=== PATIENT | male | born 1945 | race Caucasian/White ===

== ENCOUNTER 2018-03-02 13:33 | Inpatient (IN) | payer MEDICARE, OTHER ==
[~2018-03-02] VITALS: Ht 188 cm; Wt 99.5 kg
[2018-03-02 19:59] VITALS: BP 138/86
[2018-03-02] MEDS ORDERED: CATAPRES0.2 MG PO (20:30)
[2018-03-02] MEDS ORDERED: LOSARTAN-HCTZ1 EAC2 PO (20:31)
[2018-03-02] MEDS ORDERED: COREG25 MG PO (20:31)
[2018-03-02] MEDS ORDERED: GLIMEPIRIDE1 MG PO (20:32)
[2018-03-02 23:45] VITALS: BP 142/83
[2018-03-03] VITALS (7 sets, daily range): BP systolic 131–160; BP diastolic 47–90; Ht 188 cm; Wt 99.5 kg
[2018-03-03] MEDS ORDERED: LIPITOR20 MG PO (00:20)
[2018-03-03] MEDS ORDERED: SYNTHROID88 MCG PO (00:20)
[2018-03-03] MEDS ORDERED: ZYLOPRIM100 MG PO ×2 (00:21→00:28)
[2018-03-03] MEDS ORDERED: BAYER CHEWABLE81 MG PO (00:23)
[2018-03-03] MEDS ORDERED: NITROQUICK0.4 MG SL (00:24)
[2018-03-03] MEDS ORDERED: PROTONIX40 MG PO (00:24)
[2018-03-03] MEDS ORDERED: ZOCOR40 MG PO (00:25)
[2018-03-03] MEDS ORDERED: REGLAN10 MG PO (00:26)
[2018-03-03] MEDS ORDERED: LONITEN10 MG PO (00:27)
[2018-03-03] MEDS ORDERED: DIOVAN160 MG PO (00:28)
[2018-03-03] MEDS ORDERED: HYDROCHLOROTH12.5 M1 PO (00:32)
[2018-03-03 08:16] LABS: BASOPHILS 0.2 % (0-2); EOSINOPHILS 1.7 % (0-7); HEMATOCRIT 28.8 % (42.0-54.0); HEMOGLOBIN 9.7 g/dL (13.5-17.5); IMMATURE GRANULOCYTES 0.3 % (0-5); LYMPHOCYTES 14.8 % (15-50); MCH 31.7 pg (26.0-34.0); MCHC 33.7 g/dL (31.0-37.0); MCV 94.1 fL (80.0-100.0); MEAN PLATELET VOLUME 11.1 fL (7.4-10.4); MONOCYTES 8.3 % (2-11); NEUTROPHILS 74.7 % (40-80); PLATELET COUNT 128 10x3/uL (130-400); RBC 3.06 10x6/uL (4.20-6.10); RDW 14.9 % (11.5-14.5); WBC 6.4 10x3/uL (4.8-10.8)
[2018-03-03 08:32] LABS: ALBUMIN 2.4 g/dL (3.4-5.0); ANION GAP 15.7 mmol/L (8-16); BILIRUBIN - TOTAL 0.78 mg/dL (0.2-1.3); CALCIUM 8.2 mg/dL (8.5-10.1); CARBON DIOXIDE 18.7 mmol/L (21.0-32.0); CREATININE - SERUM 3.5 mg/dL (0.6-1.3); POTASSIUM - SERUM 4.4 mmol/L (3.5-5.1); PROTEIN - SERUM 4.9 g/dL (6.4-8.2)
[2018-03-03 14:43] LABS: % SATURATION 33 % (15-55); IRON 43 ug/dl (35-150); TOTAL IRON BIND CAPACITY 130 ug/dl (260-445); UNSAT IRON BIND CAPACITY 87 ug/dl (150-375)
[2018-03-03 15:02] LABS: CKMB 0.9 U/L (0.0-3.6); CREATINE KINASE 47 UL (21-232); MAGNESIUM - SERUM 1.9 mg/dL (1.8-2.4); T4 THYROXIN - FREE 1.02 ng/dL (0.76-1.46); THYROID STIMULATING HORMONE 3.85 uIU/mL (0.36-3.74); TROPONIN-I 0.023 ng/mL (0.000-0.060)
[2018-03-03 15:10] LABS: APPEARANCE CLEAR (CLEAR); COLOR YELLOW (YELLOW); NITRITE NEGATIVE (NEGATIVE)
[2018-03-03 15:11] LABS: AMORPHOUS SEDIMENT <1+ /lpf (NONE SEEN); BACTERIA NONE SEEN /hpf (NONE SEEN); BILIRUBIN NEGATIVE (NEGATIVE); EPITHELIAL CELLS NSEEN /hpf (0-5); GLUCOSE 250 mg/dL (NEGATIVE); KETONE NEGATIVE (NEGATIVE); PROTEIN 3+ mg/dL (NEGATIVE); RED CELLS - URINE 0-5 /hpf (0-5); UROBILINOGEN NORMAL (NORMAL); WHITE CELLS - URINE NSEEN /hpf (0-5)
[2018-03-03 17:29] LABS: PRO/CRE RATIO URINE 6.1 mg/g; PROTEIN - URINE 460.8 mg/dL (0.0-11.9)
[2018-03-03 17:34] LABS: APPEARANCE CLEAR (CLEAR); COLOR YELLOW (YELLOW); SPECIFIC GRAVITY 1.015 (1.005-1.020)
[2018-03-03 17:35] LABS: BILIRUBIN NEGATIVE (NEGATIVE); GLUCOSE 250 mg/dL (NEGATIVE); KETONE NEGATIVE (NEGATIVE); NITRITE NEGATIVE (NEGATIVE); PROTEIN 3+ mg/dL (NEGATIVE); RED CELLS - URINE OCC /hpf (0-5); UROBILINOGEN NORMAL (NORMAL); WHITE CELLS - URINE NSEEN /hpf (0-5)
[2018-03-03 18:15] LABS: ERYTHROCYTE SEDIMENTATION RATE 14 mm/hr (0-20)
[2018-03-03 19:57] LABS: CKMB 0.4 U/L (0.0-3.6); CREATINE KINASE 34 UL (21-232); TROPONIN-I 0.033 ng/mL (0.000-0.060)
[2018-03-04 01:52] LABS: CKMB 0.8 U/L (0.0-3.6); CREATINE KINASE 43 UL (21-232); TROPONIN-I 0.035 ng/mL (0.000-0.060)
[2018-03-04 03:55] VITALS: BP 145/88
[2018-03-04 05:46] LABS: BASOPHILS 0.2 % (0-2); EOSINOPHILS 3.2 % (0-7); HEMATOCRIT 26.7 % (42.0-54.0); HEMOGLOBIN 8.9 g/dL (13.5-17.5); IMMATURE GRANULOCYTES 0.4 % (0-5); LYMPHOCYTES 23.1 % (15-50); MCH 31.6 pg (26.0-34.0); MCHC 33.3 g/dL (31.0-37.0); MCV 94.7 fL (80.0-100.0); MEAN PLATELET VOLUME 11.2 fL (7.4-10.4); MONOCYTES 9.6 % (2-11); NEUTROPHILS 63.5 % (40-80); PLATELET COUNT 113 10x3/uL (130-400); RBC 2.82 10x6/uL (4.20-6.10); RDW 14.6 % (11.5-14.5); WBC 5.3 10x3/uL (4.8-10.8)
[2018-03-04 06:10] LABS: ANION GAP 16.2 mmol/L (8-16); CALCIUM 7.9 mg/dL (8.5-10.1); CARBON DIOXIDE 18.9 mmol/L (21.0-32.0); POTASSIUM - SERUM 4.1 mmol/L (3.5-5.1)
[2018-03-04 10:52] LABS: PHOSPHOROUS 4.3 mg/dL (2.5-4.9); URIC ACID 5.6 mg/dL (2.6-7.2)
[2018-03-04 11:34] VITALS: BP 133/93
[2018-03-04 19:59] VITALS: BP 131/70
[2018-03-04 23:45] VITALS: BP 136/85
[2018-03-05 03:45] VITALS: BP 149/83
[2018-03-05 05:59] LABS: BASOPHILS 0.2 % (0-2); EOSINOPHILS 3.4 % (0-7); HEMATOCRIT 25.7 % (42.0-54.0); HEMOGLOBIN 8.5 g/dL (13.5-17.5); IMMATURE GRANULOCYTES 0.5 % (0-5); LYMPHOCYTES 24.4 % (15-50); MCH 31.5 pg (26.0-34.0); MCHC 33.1 g/dL (31.0-37.0); MCV 95.2 fL (80.0-100.0); MEAN PLATELET VOLUME 10.3 fL (7.4-10.4); MONOCYTES 9.5 % (2-11); PLATELET COUNT 94 10x3/uL (130-400); RDW 14.4 % (11.5-14.5); WBC 4.4 10x3/uL (4.8-10.8)
[2018-03-05 06:23] LABS: ANION GAP 12.2 mmol/L (8-16); CALCIUM 7.7 mg/dL (8.5-10.1); CARBON DIOXIDE 21.8 mmol/L (21.0-32.0); CREATININE - SERUM 2.6 mg/dL (0.6-1.3)
[2018-03-05 07:50] LABS: PLATELET ESTIMATE DECREASED
[2018-03-05 08:41] VITALS: BP 149/87
[2018-03-05 12:16] VITALS: BP 138/83
[2018-03-05 16:31] VITALS: BP 125/84
[2018-03-05 19:00] VITALS: BP 148/76
[2018-03-06 00:23] VITALS: BP 140/73
[2018-03-06 05:03] VITALS: BP 158/85
[2018-03-06 05:08] LABS: BASOPHILS 0.4 % (0-2); EOSINOPHILS 3.5 % (0-7); HEMATOCRIT 25.3 % (42.0-54.0); HEMOGLOBIN 8.4 g/dL (13.5-17.5); IMMATURE GRANULOCYTES 0.6 % (0-5); LYMPHOCYTES 22.4 % (15-50); MCH 31.5 pg (26.0-34.0); MCHC 33.2 g/dL (31.0-37.0); MCV 94.8 fL (80.0-100.0); MEAN PLATELET VOLUME 10.4 fL (7.4-10.4); MONOCYTES 9.2 % (2-11); NEUTROPHILS 63.9 % (40-80); PLATELET COUNT 100 10x3/uL (130-400); RBC 2.67 10x6/uL (4.20-6.10); RDW 14.7 % (11.5-14.5); WBC 4.9 10x3/uL (4.8-10.8)
[2018-03-06 05:40] LABS: ANION GAP 16.1 mmol/L (8-16); CALCIUM 7.7 mg/dL (8.5-10.1); CARBON DIOXIDE 19.8 mmol/L (21.0-32.0); CREATININE - SERUM 2.5 mg/dL (0.6-1.3); POTASSIUM - SERUM 3.9 mmol/L (3.5-5.1)
[2018-03-06 06:08] LABS: FOLATE (FOLIC ACID) - SERUM 12.3 ng/mL (>3.0)
[2018-03-06 08:35] VITALS: BP 155/95
[2018-03-06 13:20] VITALS: BP 140/88
[2018-03-06 19:45] VITALS: BP 157/87
[2018-03-06 23:30] VITALS: BP 158/99
[2018-03-07 04:05] VITALS: BP 155/96
[2018-03-07 06:46] LABS: BASOPHILS 0.4 % (0-2); EOSINOPHILS 4.3 % (0-7); HEMATOCRIT 27.4 % (42.0-54.0); HEMOGLOBIN 8.9 g/dL (13.5-17.5); IMMATURE GRANULOCYTES 0.7 % (0-5); LYMPHOCYTES 22.8 % (15-50); MCH 31.4 pg (26.0-34.0); MCHC 32.5 g/dL (31.0-37.0); MEAN PLATELET VOLUME 11.3 fL (7.4-10.4); MONOCYTES 9.4 % (2-11); NEUTROPHILS 62.4 % (40-80); RBC 2.83 10x6/uL (4.20-6.10); RDW 14.7 % (11.5-14.5); WBC 5.6 10x3/uL (4.8-10.8)
[2018-03-07 06:48] LABS: MCV 96.8 fL (80.0-100.0); PLATELET COUNT 129 10x3/uL (130-400)
[2018-03-07 07:43] LABS: ANION GAP 14.3 mmol/L (8-16); CALCIUM 8.3 mg/dL (8.5-10.1); CARBON DIOXIDE 21.8 mmol/L (21.0-32.0); CREATININE - SERUM 2.3 mg/dL (0.6-1.3); POTASSIUM - SERUM 4.1 mmol/L (3.5-5.1)
[2018-03-07 09:51] VITALS: BP 154/34
[2018-03-07 11:16] VITALS: BP 82/40
--- NOTE | 2018-03-07 11:30 | MORECARE ---
CASE MANAGEMENT DISCHARGE SUMMARY PATIENT: VERONICA SOTELO UNIT: [id number] ADM DATE: 03/02/18 AGE: 73 : 46 SEX: M ROOM/BED: D.2101 AUTHOR: ELKIN REBOLLEDO PHYSICIAN: REFERRING PHYSICIAN: AMANDA BUCHANAN MD DATE OF SERVICE: 03/07/18 Discharge Plan Patient Name: VERONICA SOTELO Facility: [facility]:[place] : 1945 Planned Disposition: Inpatient Rehab Anticipated Discharge Date: 03/08/18 Discharge Date: Expected LOS: 6 Initial Reviewer: [email or web address] Initial Review Date: 03/07/2018 Generated: 03/07/18 12:29 pm External Providers External Provider: OTHER-OTHER Next Contact Date: 03/07/2018 Service Request Date: Service Type: Resolution: Reviewer: Comments: Patient Name: VERONICA SOTELO Page 75966 at 1130 All edits/amendments must be made on the electronic document DICTATION DATE: 03/07/18 1129 RN TRANSFER: VICKIE 03/07/18 1129 RPT#: [id number] MS DATE: STATUS: ADM IN [facility] [address] [place] [address] END OF REPORT
--- NOTE | 2018-03-07 12:00 | MORECARE ---
CASE MANAGEMENT DISCHARGE SUMMARY PATIENT: VERONICA SOTELO UNIT: [id number] ADM DATE: 03/02/18 AGE: 73 : 46 SEX: M ROOM/BED: D.2101 AUTHOR: ELKIN REBOLLEDO PHYSICIAN: REFERRING PHYSICIAN: AMANDA BUCHANAN MD DATE OF SERVICE: 03/07/18 Discharge Plan Patient Name: VERONICA SOTELO Facility: [facility]:[place] : 1945 Planned Disposition: Inpatient Rehab Anticipated Discharge Date: 03/08/18 Discharge Date: Expected LOS: 6 Initial Reviewer: [email or web address] Initial Review Date: 03/07/2018 Generated: 03/07/18 1:00 pm Last DP export: 03/07/18 10:29 Patient Name: VERONICA SOTELO Page 32801 at 1200 All edits/amendments must be made on the electronic document DICTATION DATE: 03/07/18 1159 ENGINEERING ASSOCIATE: VICKIE 03/07/18 1159 RPT#: [id number] DC DATE: STATUS: ADM IN [facility] [address] [place] [address] END OF REPORT
--- NOTE | 2018-03-07 12:19 | MORECARE ---
CASE MANAGEMENT DISCHARGE SUMMARY PATIENT: VERONICA SOTELO UNIT: [id number] ADM DATE: 03/02/18 AGE: 73 : 46 SEX: M ROOM/BED: D.2101 AUTHOR: ELKIN REBOLLEDO PHYSICIAN: REFERRING PHYSICIAN: AMANDA BUCHANAN MD DATE OF SERVICE: 03/07/18 Discharge Plan Patient Name: VERONICA SOTELO Facility: [facility]:[place] : 1945 Planned Disposition: Inpatient Rehab Anticipated Discharge Date: 03/08/18 Discharge Date: Expected LOS: 6 Initial Reviewer: [email or web address] Initial Review Date: 03/07/2018 Generated: 03/07/18 1:19 pm DCPIA - Discharge Planning Initial Assessment Updated by [email or web address]: Masoud Hernandez on 03/07/18 12:17 pm * Is the patient Alert and Oriented? Yes * How many steps to enter\exit or inside your home? NONE * PCP DR. YORDAN VICENTE * Pharmacy [facility] IN [place] * Preadmission Environment Home with Family * ADLs Independent * Equipment Cane * Other Equipment NO MEDICAL EQUIPMENT PROVIDER PREFERENCE * List name and contact numbers for known caregivers / representatives who currently or will assist patient after discharge: SEB SOTELO, SPOUSE, * Verbal permission to speak to the caregivers and representatives has been obtained from the patient. Yes * Community resources currently utilized None * Please name any agencies selected above. NONE * Additional services required to return to the preadmission environment? Yes * Can the patient safely return to the preadmission environment? Yes * Has this patient been hospitalized within the prior 30 days at any hospital? No Coverage Notice Reviewer: [id number] - Masoud Hernandez Notice Issued Date-Time: 03/07/2018 11:10 Notice Type: IM Discharge Notice Notice Delivered To: Patient Relationship to Patient: Director Hris Name: Delivery Method: HAND - Hand Delivered Cary Days: Prior Verbal Notification: Recipient Understood Notice: Yes Recipient Signature: Yes Med Rec Note Co-signed by Attending: Coverage Notice Comment: Last DP export: 03/07/18 11:00 Patient Name: VERONICA SOTELO Page 32733 at 1219 All edits/amendments must be made on the electronic document DICTATION DATE: 03/07/181218 COMMUNITY RELATIONS SPECIALIST: VICKIE 03/07/181218 RPT#: [id number] ID DATE: STATUS: ADM IN [facility] [address] [place] [address] END OF REPORT
--- NOTE | 2018-03-07 12:26 | MORECARE ---
CASE MANAGEMENT DISCHARGE SUMMARY PATIENT: VERONICA SOTELO UNIT: [id number] ADM DATE: 03/02/18 AGE: 73 : 46 SEX: M ROOM/BED: D.2101 AUTHOR: ELKIN REBOLLEDO PHYSICIAN: REFERRING PHYSICIAN: AMANDA BUCHANAN MD DATE OF SERVICE: 03/07/18 Discharge Plan Patient Name: VERONICA SOTELO Facility: [facility]:[place] : 1945 Planned Disposition: Inpatient Rehab Anticipated Discharge Date: 03/08/18 Discharge Date: Expected LOS: 6 Initial Reviewer: [id number] Initial Review Date: 03/07/2018 Generated: 03/07/18 1:25 pm Comments DCP- Discharge Planning Updated by [id number]: Masoud Hernandez on 03/07/18 11:[address] Patient Name: VERONICA SOTELO Admission Status: Elective Accout number: [id number] Admission Date: 03-02-2018 : 1945 Admission Diagnosis: Attending: AMANDA BUCHANAN Current LOS: 5 Anticipated DC Date: 03-08-2018 Planned Disposition: Inpatient Rehab Primary Insurance: MEDICARE A & B PLANNED EXTERNAL PROVIDER: [facility] Discharge Planning Comments: CM RECEIVED MESSAGE FROM PT'S SPOUSE, SEB, TO CALL WITH [facility] AND SPOUSE WANTS PT PLACED THERE FOR REHAB. CM MET WITH PT IN ROOM TO DISCUSS DISCHARGE PLANNING AND NEEDS. PT REPORTS LIVING AT HOME INDEPENDENTLY WITH SPOUSE. PT HAS INTERIOR STAIRS IN HIS HOME THAT HE NEVER USES. PT HAS CANE WITH NO MEDICAL EQUIPMENT PROVIDER PREFERENCE. PT HAS NO OUTSIDE SERVICES ASSISTING IN THE HOME. CM DISCUSSED AVAILABILITY OF HOME HEALTH, REHAB SERVICES AND MEDICAL EQUIPMENT. PT HAS DISCUSSED REHAB WITH HIS AND AGREES FOR REHAB AT [facility]. PT REPORTS HIS FAMILY WILL PICK HIM UP FOR DISCHARGE HOME. IMPORTANT MESSAGE FROM MEDICARE PROVIDED AND EXPLAINED. CM CALLED OF [facility], , WHO HAS SPOKEN TO PT'S SPOUSE REGARDING REHAB EVALUATION AND IS EXPECTING THE REFERRAL. CM FAXED REFERRAL TO [facility] AT [phone]. WAITING COMPLETION AND DOCUMENATION OF OCCUPATIONAL THERAPY EVALUATION AND WILL FAX TO [facility] TO COMPLETE REFERRAL FOR ADMISSION REVIEW. Coil Finisher: Masoud Hernandez DCPIA - Discharge Planning Initial Assessment Updated by [id number]: Masoud Hernandez on 03/07/18 12:17 pm * Is the patient Alert and Oriented? Yes * How many steps to enter\exit or inside your home? NONE * PCP DR. YORDAN VICENTE * Pharmacy [facility] IN [place] * Preadmission Environment Home with Family * ADLs Independent * Equipment Cane * Other Equipment NO MEDICAL EQUIPMENT PROVIDER PREFERENCE * List name and contact numbers for known caregivers / representatives who currently or will assist patient after discharge: SEB SOTELO, SPOUSE, * Verbal permission to speak to the caregivers and representatives has been obtained from the patient. Yes * Community resources currently utilized None * Please name any agencies selected above. NONE * Additional services required to return to the preadmission environment? Yes * Can the patient safely return to the preadmission environment? Yes * Has this patient been hospitalized within the prior 30 days at any hospital? No Coverage Notice Reviewer: [id number] - Masoud Hernandez Notice Issued Date-Time: 03/07/2018 11:10 Notice Type: IM Discharge Notice Notice Delivered To: Patient Relationship to Patient: Payroll Tax Specialist Name: Delivery Method: HAND - Hand Delivered Cary Days: Prior Verbal Notification: Recipient Understood Notice: Yes Recipient Signature: Yes Med Rec Note Co-signed by Attending: Coverage Notice Comment: Last DP export: 03/07/18 11:19 Patient Name: VERONICA SOTELO Page 93751 at 1226 All edits/amendments must be made on the electronic document DICTATION DATE: 03/07/18 1225 NATIONAL INVESTIGATIVE PRODUCER: VICKIE 03/07/18 1225 RPT#: [id number] DC DATE: STATUS: ADM IN [facility] [address] [place] [address] END OF REPORT
[2018-03-07 14:12] VITALS: BP 104/52
--- NOTE | 2018-03-07 18:19 | MORECARE ---
CASE MANAGEMENT DISCHARGE SUMMARY PATIENT: VERONICA SOTELO UNIT: [id number] ADM DATE: 03/02/18 AGE: 73 : 46 SEX: M ROOM/BED: D.2101 AUTHOR: AMAURYDOC PHYSICIAN: REFERRING PHYSICIAN: AMANDA BUCHANAN MD DATE OF SERVICE: 03/07/18 Discharge Plan Patient Name: VERONICA SOTELO Facility: [facility]:[place] : 1945 Planned Disposition: Inpatient Rehab Anticipated Discharge Date: 03/08/18 Discharge Date: Expected LOS: 6 Initial Reviewer: [id number] Initial Review Date: 03/07/2018 Generated: 03/07/18 7:19 pm Comments DCP- Discharge Planning Updated by [email or web address]: Masoud Hernandez on 03/07/18 5:[address] Patient Name: VERONICA SOTELO Admission Status: Elective Accout number: [id number] Admission Date: 03-02-2018 : 1945 Admission Diagnosis: Attending: AMANDA BUCHANAN Current LOS: 5 Anticipated DC Date: 03-08-2018 Planned Disposition: Inpatient Rehab Primary Insurance: MEDICARE A & B PLANNED EXTERNAL PROVIDER: [facility] Discharge Planning Comments: CM RECEIVED MESSAGE FROM PT'S SPOUSE, SEB, TO CALL WITH [facility] AND SPOUSE WANTS PT PLACED THERE FOR REHAB. CM MET WITH PT IN ROOM TO DISCUSS DISCHARGE PLANNING AND NEEDS. PT REPORTS LIVING AT HOME INDEPENDENTLY WITH SPOUSE. PT HAS INTERIOR STAIRS IN HIS HOME THAT HE NEVER USES. PT HAS CANE WITH NO MEDICAL EQUIPMENT PROVIDER PREFERENCE. PT HAS NO OUTSIDE SERVICES ASSISTING IN THE HOME. CM DISCUSSED AVAILABILITY OF HOME HEALTH, REHAB SERVICES AND MEDICAL EQUIPMENT. PT HAS DISCUSSED REHAB WITH HIS AND AGREES FOR REHAB AT [facility]. PT REPORTS HIS FAMILY WILL PICK HIM UP FOR DISCHARGE HOME. IMPORTANT MESSAGE FROM MEDICARE PROVIDED AND EXPLAINED. CM CALLED OF [facility], , WHO HAS SPOKEN TO PT'S SPOUSE REGARDING REHAB EVALUATION AND IS EXPECTING THE REFERRAL. CM FAXED REFERRAL TO [facility] AT [phone]. CM WAITING COMPLETION AND DOCUMENATION OF OCCUPATIONAL THERAPY EVALUATION AND WILL FAX TO [facility] TO COMPLETE REFERRAL FOR ADMISSION REVIEW. Social Professionals: Masoud Hernandez Appended by Masoud Hernandez on 03/07/2018 18:17 DISPENSING OPTICIAN APPRENTICE: CM FAXED COMPLETED OCCUPATIONAL THERAPY EVALUATION TO [facility] AT [phone] TO COMPLETE REFERRAL FOR ADMISSION REVIEW. CM WAITING ADMISSION DETERMINATION FROM [facility]. Social Professionals: Masoud Hernandez DCPIA - Discharge Planning Initial Assessment Updated by [id number]: Masoud Hernandez on 03/07/18 12:17 pm * Is the patient Alert and Oriented? Yes * How many steps to enter\exit or inside your home? NONE * PCP DR. YORDAN VICENTE * Pharmacy [facility] IN [place] * Preadmission Environment Home with Family * ADLs Independent * Equipment Cane * Other Equipment NO MEDICAL EQUIPMENT PROVIDER PREFERENCE * List name and contact numbers for known caregivers / representatives who currently or will assist patient after discharge: SEB SOTELO, SPOUSE, * Verbal permission to speak to the caregivers and representatives has been obtained from the patient. Yes * Community resources currently utilized None * Please name any agencies selected above. NONE * Additional services required to return to the preadmission environment? Yes * Can the patient safely return to the preadmission environment? Yes * Has this patient been hospitalized within the prior 30 days at any hospital? No Coverage Notice Reviewer: [id number] - Masoud Hernandez Notice Issued Date-Time: 03/07/2018 11:10 Notice Type: IM Discharge Notice Notice Delivered To: Patient Relationship to Patient: Detention Sergeant Name: Delivery Method: HAND - Hand Delivered Cary Days: Prior Verbal Notification: Recipient Understood Notice: Yes Recipient Signature: Yes Med Rec Note Co-signed by Attending: Coverage Notice Comment: Last DP export: 03/07/18 11:25 Patient Name: VERONICA SOTELO Page 06495 at 6574 All edits/amendments must be made on the electronic document DICTATION DATE: 03/07/181818 NIGHT NURSE: VICKIE 03/07/181818 RPT#: [id number] DC DATE: STATUS: ADM IN [facility] [address] [place] [address] END OF REPORT
[2018-03-07 19:00] VITALS: BP 155/91
[2018-03-08 00:44] VITALS: BP 153/98
[2018-03-08 04:34] VITALS: BP 158/84
[2018-03-08 05:29] LABS: BASOPHILS 0.5 % (0-2); EOSINOPHILS 3.6 % (0-7); HEMATOCRIT 24.5 % (42.0-54.0); IMMATURE GRANULOCYTES 0.9 % (0-5); LYMPHOCYTES 24.1 % (15-50); MCH 31.5 pg (26.0-34.0); MCHC 32.7 g/dL (31.0-37.0); MCV 96.5 fL (80.0-100.0); MEAN PLATELET VOLUME 11.8 fL (7.4-10.4); MONOCYTES 9.1 % (2-11); NEUTROPHILS 61.8 % (40-80); PLATELET COUNT 111 10x3/uL (130-400); RBC 2.54 10x6/uL (4.20-6.10); RDW 14.8 % (11.5-14.5); WBC 4.4 10x3/uL (4.8-10.8)
[2018-03-08 05:46] LABS: ANION GAP 12.4 mmol/L (8-16); CALCIUM 7.7 mg/dL (8.5-10.1); CARBON DIOXIDE 22.4 mmol/L (21.0-32.0); CREATININE - SERUM 2.3 mg/dL (0.6-1.3); POTASSIUM - SERUM 3.8 mmol/L (3.5-5.1)
[2018-03-08 08:48] VITALS: BP 149/85
[2018-03-08 12:00] VITALS: BP 137/87
--- NOTE | 2018-03-08 13:10 | MORECARE ---
CASE MANAGEMENT DISCHARGE SUMMARY PATIENT: VERONICA SOTELO UNIT: [id number] ADM DATE: 03/02/18 AGE: 73 : 46 SEX: M ROOM/BED: D.2101 AUTHOR: ELKIN REBOLLEDO PHYSICIAN: REFERRING PHYSICIAN: AMANDA BUCHANAN MD DATE OF SERVICE: 03/08/18 Discharge Plan Patient Name: VERONICA SOTELO Facility: [facility]:[place] : 1945 Planned Disposition: Inpatient Rehab Anticipated Discharge Date: 03/08/18 Discharge Date: Expected LOS: 6 Initial Reviewer: [id number] Initial Review Date: 03/07/2018 Generated: 03/08/18 2:09 pm Comments DCP- Discharge Planning Updated by [email or web address]: Masoud Hernandez on 03/08/18 12:[address] Patient Name: VERONICA SOTELO Encounter No: [id number] : 1945 Primary Insurance: MEDICARE A & B Anticipated DC Date: 03-08-2018 Planned Disposition: Inpatient Rehab External Planned Provider: [facility] Discharge Planning Comments: CM RECEIVED CALL FROM OF [facility], , WHO HAS RECEIVED AND REVIEWED REFERRAL, SHE WILL VISIT WITH PT TODAY AT HOSPITAL TO ASSESS FOR REHAB PLACEMENT. REPORTS THAT SHE EXPECTS TO ACCEPT FOR INPATIENT REHAB.. CM WAITING ADMISSION DETERMINATION FROM [facility]. Bottle Hop: Masoud Hernandez DCP- Discharge Planning Updated by [id number]: Masoud Hernandez on 03/07/18 5:[address] Patient Name: VERONICA SOTELO Admission Status: Elective Accout number: [id number] Admission Date: 03-02-2018 : 1945 Admission Diagnosis: Attending: AMANDA BUCHANAN Current LOS: 5 Anticipated DC Date: 03-08-2018 Planned Disposition: Inpatient Rehab Primary Insurance: MEDICARE A & B PLANNED EXTERNAL PROVIDER: [facility] Discharge Planning Comments: CM RECEIVED MESSAGE FROM PT'S SPOUSE, SEB, TO CALL WITH [facility] AND SPOUSE WANTS PT PLACED THERE FOR REHAB. CM MET WITH PT IN ROOM TO DISCUSS DISCHARGE PLANNING AND NEEDS. PT REPORTS LIVING AT HOME INDEPENDENTLY WITH SPOUSE. PT HAS INTERIOR STAIRS IN HIS HOME THAT HE NEVER USES. PT HAS CANE WITH NO MEDICAL EQUIPMENT PROVIDER PREFERENCE. PT HAS NO OUTSIDE SERVICES ASSISTING IN THE HOME. CM DISCUSSED AVAILABILITY OF HOME HEALTH, REHAB SERVICES AND MEDICAL EQUIPMENT. PT HAS DISCUSSED REHAB WITH HIS AND AGREES FOR REHAB AT [facility]. PT REPORTS HIS FAMILY WILL PICK HIM UP FOR DISCHARGE HOME. IMPORTANT MESSAGE FROM MEDICARE PROVIDED AND EXPLAINED. CM CALLED MJ OF [facility], , WHO HAS SPOKEN TO PT'S SPOUSE REGARDING REHAB EVALUATION AND IS EXPECTING THE REFERRAL. CM FAXED REFERRAL TO [facility] AT [phone]. CM WAITING COMPLETION AND DOCUMENATION OF OCCUPATIONAL THERAPY EVALUATION AND WILL FAX TO [facility] TO COMPLETE REFERRAL FOR ADMISSION REVIEW. Bottle Hop: Masoud Hernandez Appended by Masoud Hernandez on 03/07/2018 18:17 TABLE ASSEMBLER: CM FAXED COMPLETED OCCUPATIONAL THERAPY EVALUATION TO [facility] AT [phone] TO COMPLETE REFERRAL FOR ADMISSION REVIEW. CM WAITING ADMISSION DETERMINATION FROM [facility]. Bottle Hop: Masoud Hernandez DCPIA - Discharge Planning Initial Assessment Updated by [id number]: Masoud Hernandez on 03/07/18 12:17 pm * Is the patient Alert and Oriented? Yes * How many steps to enter\exit or inside your home? NONE * PCP DR. YORDAN VICENTE * [facility] [place] * Preadmission Environment Home with Family * ADLs Independent * Equipment Cane * Other Equipment NO MEDICAL EQUIPMENT PROVIDER PREFERENCE * List name and contact numbers for known caregivers / representatives who currently or will assist patient after discharge: SEB SOTELO, SPOUSE, * Verbal permission to speak to the caregivers and representatives has been obtained from the patient. Yes * Community resources currently utilized None * Please name any agencies selected above. NONE * Additional services required to return to the preadmission environment? Yes * Can the patient safely return to the preadmission environment? Yes * Has this patient been hospitalized within the prior 30 days at any hospital? No Coverage Notice Reviewer: [id number] - Masoud Hernandez Notice Issued Date-Time: 03/07/2018 11:10 Notice Type: IM Discharge Notice Notice Delivered To: Patient Relationship to Patient: Band Aid Machine Operator Name: Delivery Method: HAND - Hand Delivered Cary Days: Prior Verbal Notification: Recipient Understood Notice: Yes Recipient Signature: Yes Med Rec Note Co-signed by Attending: Coverage Notice Comment: Last DP export: 03/07/18 5:19 Patient Name: VERONICA SOTELO Page 82960 at 1310 All edits/amendments must be made on the electronic document DICTATION DATE: 03/08/18 1309 LOAN AND CREDIT MANAGER: VICKIE 03/08/18 1309 RPT#: [id number] DC DATE: STATUS: [facility]M [facility] [address] [place] [address] END OF REPORT
[2018-03-08 13:12] LABS: UPE RAND - ALBUMIN 73.8 % (()); UPE RAND - ALPHA 1 GLOBULIN 1.6 % (()); UPE RAND - ALPHA 2 GLOBULIN 8.5 % (()); UPE RAND - BETA GLOBULIN 9.2 % (()); UPE RAND - GAMMA GLOBULIN 6.8 % (())
[2018-03-08 13:12] LABS: SPE - A/G RATIO 1.4 (0.7-1.7); SPE - ALBUMIN 2.6 g/dL (2.9-4.4); SPE - ALPHA-1 GLOBULIN 0.3 g/dL (0.0-0.4); SPE - ALPHA-2 GLOBULIN 0.6 g/dL (0.4-1.0); SPE - BETA GLOBULIN 0.6 g/dL (0.7-1.3); SPE - GAMMA GLOBULIN 0.4 g/dL (0.4-1.8); SPE - M-SPIKE Not Observed g/dL (Not Observed); SPE - TOTAL PROTEIN 4.5 g/dL (6.0-8.5)
--- NOTE | 2018-03-08 14:57 | EC ---
PATIENT:VERONICA SOTELO DATE OF SERVICE: 03/02/18 SEX: M MEDICAL RECORD: [id number] DATE OF : [birth year] LOCATION:D.M2 D.210 AGE OF PATIENT: 73 ADMISSION DATE: 03/02/18 REFERRING PHYSICIAN: INTERPRETING PHYSICIAN: VANESSA MIJARES MD ECHOCARDIOGRAM REPORT ECHO CHARGES 4 ECHO COMPLETE Date: 03/03/18 CLINICAL DIAGNOSIS: CHF ECHOCARDIOGRAPHIC MEASUREMENTS (adult normal given) AC root (d.<3.7cm) 4.6 cm LV Septum d (<1.2 cm> 1.6 cm Valve Excursion 2.3 cm LV Septum (systole) 2.4 cm Left Atria (s.<4.0cm> 5.4 cm LVPW d(<1.2cm) 1.7 cm RV (d.<2.3cm) 2.6 cm LVPW (sytole) 2.2 cm LV diastole(<5.6CM) 6.9 cm MV E-F(>70mm/sec) cm LV systole 4.9 cm LVOT Diameter 2.4 cm MV exc.(>10mm) cm Est.ejection fraction (50-75%) % DOPPLER: LVIT cm/sec A cm/sec E 133 cm/sec LA cm/sec RVSP 43.0 mmHg LVOT 73.0 cm/sec AOP1/2T m/s Asc. Ao 142 cm/sec RVOT 78.0 cm/sec RA cm/sec PA 122 cm/sec AV Gradient Peak 8.1 mmHg AV Mean 4.4 mmHg AV Area 2.1 cm MV Gradient Peak 8.5 mmHg MV Mean 3.2 mmHg MV Area cm COMMENTS: Director Trade: Lorenzo CARPIOOE Peoplesoft: 1 Dr. Mijares TAPE# PACS Pericardial Effusion N DATE OF SERVICE: 03/03/2018 PROCEDURE: Echocardiogram. FINDINGS: 1. Left ventricular chamber size is mildly dilated. Left ventricular systolic function is significantly reduced, overall ejection fraction 30%. 2. Left atrium is enlarged at 5.4 cm. Right atrium and right ventricle chamber sizes are as well dilated. 3. Valvular structures have normal structure and motion. ECHOCARDIOGRAM REPORT [id number] VERONICA SOTELO 4. Doppler interrogation reveals mild aortic insufficiency, mild mitral regurgitation, mild tricuspid regurgitation, no other valvular insufficiency or stenosis. Pulmonary systolic pressure is estimated 43 mmHg. 5. No evidence of pericardial effusion or left ventricular thrombus. TRANSINT:[id number] Voice Confirmation ID: [id number] DOCUMENT ID: [id number] VANESSA MIJARES MD at 1457 CC: [id number] DICTATION DATE: 03/04/18 0903 CUSTOMER ACCOUNT MANAGER: 03/04/18 1019 ADM IN [place] [id number] [place] [id number]
--- NOTE | 2018-03-08 14:57 | CN ---
PATIENT NAME:VERONICA SOTELO MEDICAL RECORD: [id number] : [birth year] LOCATION:[facility] D.2101 ADMIT DATE: 03/02/18 ACCOUNT: [id number] CONSULTING PHYSICIAN: VANESSA URIAS MD REFERRING PHYSICIAN: AMANDA BUCHANAN MD DATE OF CONSULTATION: 03/04/2018 CARDIOLOGY CONSULT DIAGNOSES: 1. Congestive heart failure with chronic systolic dysfunction. 2. Cardiomyopathy. 3. Coronary disease. 4. Previous coronary bypass graft surgery. 5. Atrial fibrillation. 6. Hypertension. 7. Diabetes. 8. Renal insufficiency. 9. Anemia. 10. Status post ICD. 11. History of GI bleed. HISTORY: This is a gentleman who is followed by Dr. Cadet at [facility] in [place]. He has a known cardiomyopathy; known atrial fibrillation, not anticoagulated secondary to GI bleed; and known coronary artery disease, who presents with blood sugar problems and found to have creatinine in the 3 range. Echocardiogram reveals dilated cardiomyopathy with ejection fraction in the 30% range; however, minimal heart failure symptomatology. He was in atrial fibrillation initially with rapid ventricular response, placed on a Cardizem drip. He is on Coreg 50 mg b.i.d. Still on the Cardizem drip with heart rates in the 90s and systolic blood pressure in the 150s. PHYSICAL EXAMINATION: GENERAL APPEARANCE: Well-nourished, well-developed, appears stated age. Level of distress, comfortable. PSYCHIATRIC: Mental status, alert, normal affect. Orientation, oriented to time, place and person. EYES: Lids and conjunctiva, noninjected. No discharge, no pallor. ENT: Lips, teeth, gums, normal dentition. Oropharynx, no cyanosis, no pallor. NECK: Carotid arteries, bilateral normal upstroke, no bruits, no thrills. JUGULAR VEINS: No jugular venous pressure or distention. CERVICAL LYMPH NODES: Nontender, nonenlarged. THYROID: Not enlarged. Nontender. No nodules. LUNGS: Respiratory effort, unlabored. CHEST: Normal curvature. No thoracic deformity. No chest wall tenderness. Percussion, resonant. Auscultation, clear. No wheezes, no rales, no rhonchi. CARDIOVASCULAR: Precordial exam, nondisplaced. No heaves or pericardial thrills. Rate and rhythm, regular. Heart sounds, normal S1, normal S2. No S3, no gallop, no rub. Systolic murmur, not heard. Diastolic murmur, not heard. EXTREMITIES: No cyanosis, no edema. Peripheral pulses, full and equal in all extremities, except as noted. No bruits appreciated. ABDOMEN: Soft, nondistended. Normal aorta. No bruit. Nontender. No masses. Liver, nontender, no hepatomegaly. Spleen, nontender, no splenomegaly. MUSCULOSKELETAL: No joint tenderness. No joint swelling. No erythema. NEUROLOGICAL: Normal gait, normal strength, normal tone. CONSULT REPORT [id number] VERONICA SOTELO SKIN: Warm and dry. OVERALL IMPRESSION: Cardiomyopathy, relatively stable; atrial fibrillation. We will discontinue the Cardizem drip and place him on p.o. Cardizem at 180 daily. Ejection fraction appears to be stable from the history of chronic systolic dysfunction at 30%. He has no signs or symptoms of ischemic heart disease, but cardiac catheterization is not an option due to his creatinine. At this time, the only change in his medication would be the p.o. diltiazem. No other cardiac workup or treatment is necessary at this time. TRANSINT:[id number] Voice Confirmation ID: [id number] DOCUMENT ID: [id number] VANESSA URIAS MD at 1457 CC: [id number] DICTATION DATE: 03/04/18 1055 ANIMAL CARE SPECIALIST: 03/04/18 1431 ADM IN [place] [id number] [place] [address]
[2018-03-08 18:45] VITALS: BP 150/50
[2018-03-09] VITALS: BP 163/90
[2018-03-09 04:00] VITALS: BP 184/98
[2018-03-09 04:49] LABS: ANION GAP 15.9 mmol/L (8-16); CARBON DIOXIDE 19.9 mmol/L (21.0-32.0); POTASSIUM - SERUM 3.8 mmol/L (3.5-5.1)
[2018-03-09 08:07] LABS: HEMATOCRIT 28.6 % (42.0-54.0); HEMOGLOBIN 9.3 g/dL (13.5-17.5); MCH 31.7 pg (26.0-34.0); MCHC 32.5 g/dL (31.0-37.0); MCV 97.6 fL (80.0-100.0); MEAN PLATELET VOLUME 11.7 fL (7.4-10.4); PLATELET COUNT 131 10x3/uL (130-400); RBC 2.93 10x6/uL (4.20-6.10); RDW 15.2 % (11.5-14.5)
[2018-03-09 08:12] LABS: WBC 6.5 10x3/uL (4.8-10.8)
[2018-03-09 09:07] LABS: EOSINOPHILS 2 % (0-7); LYMPHOCYTES 23 % (15-50); MONOCYTES 10 % (2-11); NEUTROPHILS 63 % (40-80); PLATELET ESTIMATE NORMAL
--- NOTE | 2018-03-09 09:23 | MORECARE ---
CASE MANAGEMENT DISCHARGE SUMMARY PATIENT: VERONICA SOTELO UNIT: [id number] ADM DATE: 03/02/18 AGE: 73 : 46 SEX: M ROOM/BED: D.2101 AUTHOR: AMAURYDOC PHYSICIAN: REFERRING PHYSICIAN: AMANDA BUCHANAN MD DATE OF SERVICE: 03/09/18 Discharge Plan Patient Name: VERONICA SOTELO Facility: [facility]:[place] : 1945 Planned Disposition: Inpatient Rehab Anticipated Discharge Date: 03/08/18 Discharge Date: Expected LOS: 6 Initial Reviewer: [id number] Initial Review Date: 03/07/2018 Generated: 03/09/18 10:23 am Comments DCP- Discharge Planning Updated by [email or web address]: Masoud Hernandez on 03/09/18 8:[address] Patient Name: VERONICA SOTELO Encounter No: [id number] : 1945 Primary Insurance: MEDICARE A & B Anticipated DC Date: 03-08-2018 Planned Disposition: Inpatient Rehab External Planned Provider: [facility] [facility] DCP follow-up note: [facility] Discharge Planning Comments: CM RECEIVED CALL FROM PT'S SPOUSE, SEB, , WHO REPORTS SPEAKING TO WITH REHAB AND THEY ARE GOING TO ACCEPT PT TODAY. REHAB WILL NOT PROVIDE TRANSPORTATION AND SPOUSE ASKED FOR AMBULANCE TRANSPORT. CM EXPLAINED THAT PT WILL NOT QUALIFY FOR MEDICARE TO PAY FOR AMBUANCE DUE TO ABILITY TO TRANSFER, SIT SAFELY AND WALK WITH ASSISTANCE AND DEVICE. PT HAS NOT SPECIAL NEEDS THAT REQUIRE AMBULANCE TRANSPORT. CM EXPLAINED THAT DAN SCHWARTZ WOULD BE VERY HIGH, SHE DOES NOT WANT TO PAY FOR AMBULANCE AND SHE WILL ARRANGE FAMILY TO MEAT GRADING MACHINE OPERATOR PT TODAY TO TRANSPORT TO REHAB AT [facility] [facility]. SAIRA CALLED AND DISCUSSED WITH KUN SHELDON WHO INFORMED CM THAT PLAN FOR DISCHARGE TODAY TO REHAB. CM CALLED SEB SOTELO BACK AND CONFIRMED PLANNED DISCHARGE FOR TODAY TO REHAB. SAIRA CALLED AND LEFT MESSAGE FOR OF [facility], , CM FAXED UPDATE TO [facility] AT [phone]. CM WAITING ADMISSION DETERMINATION FROM [facility]. FAMILY ON THE WAY FROM [facility] TO PROVIDE TRANSPORT TO REHAB TODAY AT DISCHARGE. Service Transformer Repair Supervisor: Masoud Hernandez DCP- Discharge Planning Updated by [id number]: Masoud Hernandez on 03/08/18 12:[address] Patient Name: VERONICA SOTELO Encounter No: [id number] : 1945 Primary Insurance: MEDICARE A & B Anticipated DC Date: 03-08-2018 Planned Disposition: Inpatient Rehab External Planned Provider: [facility] Discharge Planning Comments: CM RECEIVED CALL FROM OF [facility], , WHO HAS RECEIVED AND REVIEWED REFERRAL, SHE WILL VISIT WITH PT TODAY AT HOSPITAL TO ASSESS FOR REHAB PLACEMENT. REPORTS THAT SHE EXPECTS TO ACCEPT FOR INPATIENT REHAB.. CM WAITING ADMISSION DETERMINATION FROM [facility]. Service Transformer Repair Supervisor: Masoud Hernandez CAP- Discharge Planning Updated by [id number]: Masoud Hernandez on 03/07/18 5:[address] Patient Name: VERONICA SOTELO Admission Status: Elective Accout number: [id number] Admission Date: 03-02-2018 : 1945 Admission Diagnosis: Attending: AMANDA BUCHANAN Current LOS: 5 Anticipated DC Date: 03-08-2018 Planned Disposition: Inpatient Rehab Primary Insurance: MEDICARE A & B PLANNED EXTERNAL PROVIDER: [facility] [facility] Discharge Planning Comments: CM RECEIVED MESSAGE FROM PT'S SPOUSE, SEB, TO CALL WITH [facility] AND SPOUSE WANTS PT PLACED THERE FOR REHAB. CM MET WITH PT IN ROOM TO DISCUSS DISCHARGE PLANNING AND NEEDS. PT REPORTS LIVING AT HOME INDEPENDENTLY WITH SPOUSE. PT HAS INTERIOR STAIRS IN HIS HOME THAT HE NEVER USES. PT HAS CANE WITH NO MEDICAL EQUIPMENT PROVIDER PREFERENCE. PT HAS NO OUTSIDE SERVICES ASSISTING IN THE HOME. CM DISCUSSED AVAILABILITY OF HOME HEALTH, REHAB SERVICES AND MEDICAL EQUIPMENT. PT HAS DISCUSSED REHAB WITH HIS AND AGREES FOR REHAB AT [facility]. PT REPORTS HIS FAMILY WILL PICK HIM UP FOR DISCHARGE HOME. IMPORTANT MESSAGE FROM MEDICARE PROVIDED AND EXPLAINED. CM CALLED OF [facility], , WHO HAS SPOKEN TO PT'S SPOUSE REGARDING REHAB EVALUATION AND IS EXPECTING THE REFERRAL. CM FAXED REFERRAL TO [facility] AT [phone]. CM WAITING COMPLETION AND DOCUMENATION OF OCCUPATIONAL THERAPY EVALUATION AND WILL FAX TO [facility] TO COMPLETE REFERRAL FOR ADMISSION REVIEW. Service Transformer Repair Supervisor: Masoud Hernandez Appended by Masoud Hernandez on 03/07/2018 18:17 CHAIN REPAIRER: CM FAXED COMPLETED OCCUPATIONAL THERAPY EVALUATION TO [facility] AT [phone] TO COMPLETE REFERRAL FOR ADMISSION REVIEW. CM WAITING ADMISSION DETERMINATION FROM [facility]. Service Transformer Repair Supervisor: Masoud Hernandez DCPIA - Discharge Planning Initial Assessment Updated by [email or web address]: Masoud Hernandez on 03/07/18 12:17 pm * Is the patient Alert and Oriented? Yes * How many steps to enter\exit or inside your home? NONE * PCP DR. YORDAN VICENTE * Pharmacy [facility] IN [place] * Preadmission Environment Home with Family * ADLs Independent * Equipment Cane * Other Equipment NO MEDICAL EQUIPMENT PROVIDER PREFERENCE * List name and contact numbers for known caregivers / representatives who currently or will assist patient after discharge: SEB SOTELO, SPOUSE, * Verbal permission to speak to the caregivers and representatives has been obtained from the patient. Yes * Community resources currently utilized None * Please name any agencies selected above. NONE * Additional services required to return to the preadmission environment? Yes * Can the patient safely return to the preadmission environment? Yes * Has this patient been hospitalized within the prior 30 days at any hospital? No Coverage Notice Reviewer: [id number] - Masoud Hernandez Notice Issued Date-Time: 03/07/2018 11:10 Notice Type: IM Discharge Notice Notice Delivered To: Patient Relationship to Patient: Store Clerk Checker Name: Delivery Method: HAND - Hand Delivered Cary Days: Prior Verbal Notification: Recipient Understood Notice: Yes Recipient Signature: Yes Med Rec Note Co-signed by Attending: Coverage Notice Comment: Last DP export: 03/08/18 12:09 Patient Name: VERONICA SOTELO Page [id number] at 0923 All edits/amendments must be made on the electronic document DICTATION DATE: 03/09/18922 AIRPORT CONTROL OPERATOR: VICKIE 03/09/18922 RPT#: [id number] CA DATE: STATUS: ADM IN [facility] [address] [place] [address] END OF REPORT
[2018-03-09] MEDS ORDERED: CARDIZEM CD180 MG PO (10:20)
--- NOTE | 2018-03-09 11:07 | MORECARE ---
CASE MANAGEMENT DISCHARGE SUMMARY PATIENT: VERONICA SOTELO UNIT: [id number] ADM DATE: 03/02/18 AGE: 73 : 46 SEX: M ROOM/BED: D.2101 AUTHOR: AMAURYDOC PHYSICIAN: REFERRING PHYSICIAN: AMANDA BUCHANAN MD DATE OF SERVICE: 03/09/18 Discharge Plan Patient Name: VERONICA SOTELO Facility: [facility]:[place] : 1945 Planned Disposition: Inpatient Rehab Anticipated Discharge Date: 03/09/18 Discharge Date: Expected LOS: 7 Initial Reviewer: [id number] Initial Review Date: 03/07/2018 Generated: 03/09/18 12:06 pm Comments DCP- Discharge Planning Updated by [id number]: Masoud Hernandez on 03/09/18 10:[address] Patient Name: VERONICA SOTELO Encounter No: [id number] : 1945 Primary Insurance: MEDICARE A & B Anticipated DC Date: 03-08-2018 Planned Disposition: Inpatient Rehab External Planned Provider: [facility] DCP follow-up note: [facility] Discharge Planning Comments: CM RECEIVED CALL FROM PT'S SPOUSE, SEB, , WHO REPORTS SPEAKING TO WITH REHAB AND THEY ARE GOING TO ACCEPT PT TODAY. REHAB WILL NOT PROVIDE TRANSPORTATION AND SPOUSE ASKED FOR AMBULANCE TRANSPORT. CM EXPLAINED THAT PT WILL NOT QUALIFY FOR MEDICARE TO PAY FOR AMBUANCE DUE TO ABILITY TO TRANSFER, SIT SAFELY AND WALK WITH ASSISTANCE AND DEVICE. PT HAS NOT SPECIAL NEEDS THAT REQUIRE AMBULANCE TRANSPORT. CM EXPLAINED THAT DAN SCHWARTZ WOULD BE VERY HIGH, SHE DOES NOT WANT TO PAY FOR AMBULANCE AND SHE WILL ARRANGE FAMILY TO COMMERCIAL BANKER PT TODAY TO TRANSPORT TO REHAB AT [facility]. SAIRA CALLED AND DISCUSSED WITH KUN SHELDON WHO INFORMED CM THAT PLAN FOR DISCHARGE TODAY TO REHAB. CM CALLED SEB SOTELO BACK AND CONFIRMED PLANNED DISCHARGE FOR TODAY TO REHAB. SAIRA CALLED AND LEFT MESSAGE FOR OF [facility], , CM FAXED UPDATE TO [facility] AT [phone]. CM WAITING ADMISSION DETERMINATION FROM [facility]. FAMILY ON THE WAY FROM [facility] TO PROVIDE TRANSPORT TO REHAB TODAY AT DISCHARGE. Tube Fitter: Masoud Hernandez Appended by Masoud Hernandez on 03/09/2018 11:03 COMPUTER OPERATIONS TECHNICIAN: CM RECEIVED CALL FROM OF [facility], , WHO INFORMED CM THEY WILL ACCEPT PT TODAY, FAMILY ON THE WAY NOW TO COMMERCIAL BANKER PT, CONFIRMED BY . CM FAXED DISCHARGE INFORMATION TO [facility] AT [phone]. NURSE REPORT TO BE CALLED TO [facility]. [phone]. FAMILY TO TRANSPORT. Tube Fitter: Masoud Hernandez DCP- Discharge Planning Updated by [id number]: Masoud Hernandez on 03/08/18 12:[address] Patient Name: VERONICA SOTELO Encounter No: [id number] : 1945 Primary Insurance: MEDICARE A & B Anticipated DC Date: 03-08-2018 Planned Disposition: Inpatient Rehab External Planned Provider: [facility] Discharge Planning Comments: CM RECEIVED CALL FROM OF [facility], , WHO HAS RECEIVED AND REVIEWED REFERRAL, SHE WILL VISIT WITH PT TODAY AT HOSPITAL TO ASSESS FOR REHAB PLACEMENT. REPORTS THAT SHE EXPECTS TO ACCEPT FOR INPATIENT REHAB.. CM WAITING ADMISSION DETERMINATION FROM [facility]. Tube Fitter: Masoud Hernandez DCP- Discharge Planning Updated by [id number]: Masoud Hernandez on 03/07/18 5:[address] Patient Name: VERONICA SOTELO Admission Status: Elective Accout number: [id number] Admission Date: 03-02-2018 : 1945 Admission Diagnosis: Attending: AMANDA BUCHANAN Current LOS: 5 Anticipated DC Date: 03-08-2018 Planned Disposition: Inpatient Rehab Primary Insurance: MEDICARE A & B PLANNED EXTERNAL PROVIDER: [facility] Discharge Planning Comments: CM RECEIVED MESSAGE FROM PT'S SPOUSE, SEB, TO CALL WITH [facility] AND SPOUSE WANTS PT PLACED THERE FOR REHAB. CM MET WITH PT IN ROOM TO DISCUSS DISCHARGE PLANNING AND NEEDS. PT REPORTS LIVING AT HOME INDEPENDENTLY WITH SPOUSE. PT HAS INTERIOR STAIRS IN HIS HOME THAT HE NEVER USES. PT HAS CANE WITH NO MEDICAL EQUIPMENT PROVIDER PREFERENCE. PT HAS NO OUTSIDE SERVICES ASSISTING IN THE HOME. CM DISCUSSED AVAILABILITY OF HOME HEALTH, REHAB SERVICES AND MEDICAL EQUIPMENT. PT HAS DISCUSSED REHAB WITH HIS AND AGREES FOR REHAB AT [facility]. PT REPORTS HIS FAMILY WILL PICK HIM UP FOR DISCHARGE HOME. IMPORTANT MESSAGE FROM MEDICARE PROVIDED AND EXPLAINED. CM CALLED MJ OF [facility], , WHO HAS SPOKEN TO PT'S SPOUSE REGARDING REHAB EVALUATION AND IS EXPECTING THE REFERRAL. CM FAXED REFERRAL TO [facility] AT [phone]. CM WAITING COMPLETION AND DOCUMENATION OF OCCUPATIONAL THERAPY EVALUATION AND WILL FAX TO [facility] TO COMPLETE REFERRAL FOR ADMISSION REVIEW. Tube Fitter: Masoud Hernandez Appended by Masoud Hernandez on 03/07/2018 18:17 COMPUTER OPERATIONS TECHNICIAN: CM FAXED COMPLETED OCCUPATIONAL THERAPY EVALUATION TO [facility] AT [phone] TO COMPLETE REFERRAL FOR ADMISSION REVIEW. CM WAITING ADMISSION DETERMINATION FROM [facility]. Tube Fitter: Masoud Hernandez DCPIA - Discharge Planning Initial Assessment Updated by [id number]: Masoud Hernandez on 03/07/18 12:17 pm * Is the patient Alert and Oriented? Yes * How many steps to enter\exit or inside your home? NONE * PCP DR. YORDAN VICENTE * Pharmacy [facility] IN [place] * Preadmission Environment Home with Family * ADLs Independent * Equipment Cane * Other Equipment NO MEDICAL EQUIPMENT PROVIDER PREFERENCE * List name and contact numbers for known caregivers / representatives who currently or will assist patient after discharge: SEB SOTELO, SPOUSE, * Verbal permission to speak to the caregivers and representatives has been obtained from the patient. Yes * Community resources currently utilized None * Please name any agencies selected above. NONE * Additional services required to return to the preadmission environment? Yes * Can the patient safely return to the preadmission environment? Yes * Has this patient been hospitalized within the prior 30 days at any hospital? No Coverage Notice Reviewer: [id number] - Masoud Hernandez Notice Issued Date-Time: 03/07/2018 11:10 Notice Type: IM Discharge Notice Notice Delivered To: Patient Relationship to Patient: Dobby Loom Fixer Name: Delivery Method: HAND - Hand Delivered Cary Days: Prior Verbal Notification: Recipient Understood Notice: Yes Recipient Signature: Yes Med Rec Note Co-signed by Attending: Coverage Notice Comment: Last DP export: 03/09/18 8:23 Patient Name: VERONICA SOTELO Page [id number] at 1107 All edits/amendments must be made on the electronic document DICTATION DATE: 03/09/18 1106 CLERICAL ADJUSTER: VICKIE 03/09/18 1106 RPT#: [id number] DC DATE: STATUS: ADM IN [facility] [address] [place] [address] END OF REPORT
--- NOTE | 2018-03-09 12:03 | MORECARE ---
CASE MANAGEMENT DISCHARGE SUMMARY PATIENT: VERONICA SOTELO UNIT: [id number] ADM DATE: 03/02/18 AGE: 73 : 46 SEX: M ROOM/BED: D.2101 AUTHOR: AMAURYDOC PHYSICIAN: REFERRING PHYSICIAN: AMANDA BUCHANAN MD DATE OF SERVICE: 03/09/18 Discharge Plan Patient Name: VERONICA SOTELO Facility: [facility]:[place] : 1945 Planned Disposition: Inpatient Rehab Anticipated Discharge Date: 03/09/18 Discharge Date: Expected LOS: 7 Initial Reviewer: [id number] Initial Review Date: 03/07/2018 Generated: 03/09/18 1:02 pm Comments DCP- Discharge Planning Updated by [id number]: Masoud Hernandez on 03/09/18 10:[address] Patient Name: VERONICA SOTELO Encounter No: [id number] : 1945 Primary Insurance: MEDICARE A & B Anticipated DC Date: 03-08-2018 Planned Disposition: Inpatient Rehab External Planned Provider: [facility] DCP follow-up note: [facility] Discharge Planning Comments: CM RECEIVED CALL FROM PT'S SPOUSE, SEB, , WHO REPORTS SPEAKING TO WITH REHAB AND THEY ARE GOING TO ACCEPT PT TODAY. REHAB WILL NOT PROVIDE TRANSPORTATION AND SPOUSE ASKED FOR AMBULANCE TRANSPORT. CM EXPLAINED THAT PT WILL NOT QUALIFY FOR MEDICARE TO PAY FOR AMBUANCE DUE TO ABILITY TO TRANSFER, SIT SAFELY AND WALK WITH ASSISTANCE AND DEVICE. PT HAS NOT SPECIAL NEEDS THAT REQUIRE AMBULANCE TRANSPORT. CM EXPLAINED THAT DAN SCHWARTZ WOULD BE VERY HIGH, SHE DOES NOT WANT TO PAY FOR AMBULANCE AND SHE WILL ARRANGE FAMILY TO MEDICAL MICROBIOLOGIST PT TODAY TO TRANSPORT TO REHAB AT [facility]. SAIRA CALLED AND DISCUSSED WITH KUN SHELDON WHO INFORMED CM THAT PLAN FOR DISCHARGE TODAY TO REHAB. CM CALLED SEB SOTELO BACK AND CONFIRMED PLANNED DISCHARGE FOR TODAY TO REHAB. SAIRA CALLED AND LEFT MESSAGE FOR OF [facility], , CM FAXED UPDATE TO [facility] AT [phone]. CM WAITING ADMISSION DETERMINATION FROM [facility]. FAMILY ON THE WAY FROM [facility] TO PROVIDE TRANSPORT TO REHAB TODAY AT DISCHARGE. Real Estate Administrative Assistant: Masoud Hernandez Appended by Masoud Hernandez on 03/09/2018 11:03 MILL ATTENDANT: CM RECEIVED CALL FROM OF [facility], , WHO INFORMED CM THEY WILL ACCEPT PT TODAY, FAMILY ON THE WAY NOW TO MEDICAL MICROBIOLOGIST PT, CONFIRMED BY . CM FAXED DISCHARGE INFORMATION TO [facility] AT [phone]. NURSE REPORT TO BE CALLED TO [facility]. [phone]. FAMILY TO TRANSPORT. Real Estate Administrative Assistant: Masoud Hernandez DCP- Discharge Planning Updated by [id number]: Masoud Hernandez on 03/08/18 12:[address] Patient Name: VERONICA SOTELO Encounter No: [id number] : 1945 Primary Insurance: MEDICARE A & B Anticipated DC Date: 03-08-2018 Planned Disposition: Inpatient Rehab External Planned Provider: [facility] Discharge Planning Comments: CM RECEIVED CALL FROM OF [facility], , WHO HAS RECEIVED AND REVIEWED REFERRAL, SHE WILL VISIT WITH PT TODAY AT HOSPITAL TO ASSESS FOR REHAB PLACEMENT. REPORTS THAT SHE EXPECTS TO ACCEPT FOR INPATIENT REHAB.. CM WAITING ADMISSION DETERMINATION FROM [facility]. Real Estate Administrative Assistant: Masoud Hernandez DCP- Discharge Planning Updated by [id number]: Masoud Hernandez on 03/07/18 5:[address] Patient Name: VERONICA SOTELO Admission Status: Elective Accout number: [id number] Admission Date: 03-02-2018 : 1945 Admission Diagnosis: Attending: AMANDA BUCHANAN Current LOS: 5 Anticipated DC Date: 03-08-2018 Planned Disposition: Inpatient Rehab Primary Insurance: MEDICARE A & B PLANNED EXTERNAL PROVIDER: [facility] Discharge Planning Comments: CM RECEIVED MESSAGE FROM PT'S SPOUSE, SEB, TO CALL WITH [facility] AND SPOUSE WANTS PT PLACED THERE FOR REHAB. CM MET WITH PT IN ROOM TO DISCUSS DISCHARGE PLANNING AND NEEDS. PT REPORTS LIVING AT HOME INDEPENDENTLY WITH SPOUSE. PT HAS INTERIOR STAIRS IN HIS HOME THAT HE NEVER USES. PT HAS CANE WITH NO MEDICAL EQUIPMENT PROVIDER PREFERENCE. PT HAS NO OUTSIDE SERVICES ASSISTING IN THE HOME. CM DISCUSSED AVAILABILITY OF HOME HEALTH, REHAB SERVICES AND MEDICAL EQUIPMENT. PT HAS DISCUSSED REHAB WITH HIS AND AGREES FOR REHAB AT [facility]. PT REPORTS HIS FAMILY WILL PICK HIM UP FOR DISCHARGE HOME. IMPORTANT MESSAGE FROM MEDICARE PROVIDED AND EXPLAINED. CM CALLED MJ OF [facility], , WHO HAS SPOKEN TO PT'S SPOUSE REGARDING REHAB EVALUATION AND IS EXPECTING THE REFERRAL. CM FAXED REFERRAL TO [facility] AT [phone]. CM WAITING COMPLETION AND DOCUMENATION OF OCCUPATIONAL THERAPY EVALUATION AND WILL FAX TO [facility] TO COMPLETE REFERRAL FOR ADMISSION REVIEW. Real Estate Administrative Assistant: Masoud Hernandez Appended by Masoud Hernandez on 03/07/2018 18:17 MILL ATTENDANT: CM FAXED COMPLETED OCCUPATIONAL THERAPY EVALUATION TO [facility] AT [phone] TO COMPLETE REFERRAL FOR ADMISSION REVIEW. CM WAITING ADMISSION DETERMINATION FROM [facility]. Real Estate Administrative Assistant: Masoud Hernandez DCPIA - Discharge Planning Initial Assessment Updated by [id number]: Masoud Hernandez on 03/07/18 12:17 pm * Is the patient Alert and Oriented? Yes * How many steps to enter\exit or inside your home? NONE * PCP DR. YORDAN VICENTE * Pharmacy [facility] IN [place] * Preadmission Environment Home with Family * ADLs Independent * Equipment Cane * Other Equipment NO MEDICAL EQUIPMENT PROVIDER PREFERENCE * List name and contact numbers for known caregivers / representatives who currently or will assist patient after discharge: SEB SOTELO, SPOUSE, * Verbal permission to speak to the caregivers and representatives has been obtained from the patient. Yes * Community resources currently utilized None * Please name any agencies selected above. NONE * Additional services required to return to the preadmission environment? Yes * Can the patient safely return to the preadmission environment? Yes * Has this patient been hospitalized within the prior 30 days at any hospital? No Coverage Notice Reviewer: [id number] - Masoud Hernandez Notice Issued Date-Time: 03/07/2018 11:10 Notice Type: IM Discharge Notice Notice Delivered To: Patient Relationship to Patient: Programs Assistant Name: Delivery Method: HAND - Hand Delivered Cary Days: Prior Verbal Notification: Recipient Understood Notice: Yes Recipient Signature: Yes Med Rec Note Co-signed by Attending: Coverage Notice Comment: Last DP export: 03/09/18 10:06 Patient Name: VERONICA SOTELO Page 08656 at 1203 All edits/amendments must be made on the electronic document DICTATION DATE: 03/09/18 1202 SR. DIRECTOR PRODUCT MANAGEMENT: VICKIE 03/09/18 1202 RPT#: [id number] DC DATE: STATUS: ADM IN [facility] [address] [place] [address] END OF REPORT
== END 2018-03-09 12:32 | DRG 291 ==
LOC: D.M2 13:33
PROVIDERS: Family Medicine; Internal Medicine Nephrology; ADMIT Internal Medicine Nephrology
DX: I13.0 Hypertensive heart and chronic kidney disease with heart failure and stage 1 through stage 4 chronic kidney disease, or unspecified chronic kidney disease (principal); I50.23 Acute on chronic systolic (congestive) heart failure; N17.9 Acute kidney failure, unspecified; N39.0 Urinary tract infection, site not specified; N18.3 Chronic kidney disease, stage 3 (moderate); E11.22 Type 2 diabetes mellitus with diabetic chronic kidney disease; I42.9 Cardiomyopathy, unspecified; I25.10 Atherosclerotic heart disease of native coronary artery without angina pectoris; I48.91 Unspecified atrial fibrillation; D50.9 Iron deficiency anemia, unspecified; E78.5 Hyperlipidemia, unspecified; D69.6 Thrombocytopenia, unspecified; R54 Age-related physical debility; B96.20 Unspecified Escherichia coli [E. coli] as the cause of diseases classified elsewhere